=== PATIENT | female | born 2000 | race Two or more races ===

== ENCOUNTER 2019-05-19 19:42 | Emergency (ER) | payer SELFPAY ==
[~2019-05-19] VITALS: Ht 162.6 cm; Wt 52.7 kg
[2019-05-19 19:42] VITALS: BP 123/75
--- NOTE | 2019-05-19 21:03 | ECGEPIP ---
[facility] - ED Test Date: 2019-05-19 Pat Name: BOOGIE CRUZ Department: Room: - Gender: Female Food Service Steward: MIO : 2000 Requested By: LILIANA Barrios Order Number: [id number] Reading MD: Tj Gillespie Measurements Intervals [place] Rate: 91 P: 60 [place]: 125 QRS: 26 QRSD: 74 T: 16 QT: 334 QTc: 411 Interpretive Statements SINUS RHYTHM NO PRIORS FOR COMPARISON Electronically Signed on 05-19-2019 21:03:08 EDT by Tj Gillespie
== END 2019-05-19 21:54 | disposition left against medical advice (07) ==
LOC: M ED 19:42
DX: R07.9 Chest pain, unspecified (principal); Z53.21 Procedure and treatment not carried out due to patient leaving prior to being seen by health care provider

== ENCOUNTER → 2021-05-14 | Outpatient (REF) | payer OTHER | LOC: M WUC 12:28 | PROVIDERS: ATTEND Nurse Practitioner Family | DX: R11.2 Nausea with vomiting, unspecified (principal) ==

== ENCOUNTER 2021-08-17 10:57 | Emergency (ER) | payer OTHER ==
[~2021-08-17] VITALS: Ht 165.1 cm; Wt 58.8 kg
--- OUTSIDE RECORDS SUMMARY | 2021-08-17 11:06 | CCD | Continuity of Care Document ---
Author Author [facility] Unknown Address [address] [place] [address] [place] [address] Phone [phone] Care Team Providers Care Field Installation Technician Name Role Phone No PCP AUTM Unavailable Problems Active Problems Provider Date Allergic rhinitis Onset: Asthma without status asthmaticus Onset: Social History Type Date Description Comments Sex Unknown ETOH Use Occasionally consumes alcohol Tobacco Use Start: Unknown Patient has never smoked Tobacco Use Start: Unknown Marajuana Tobacco Use Start: Unknown Patient Currently Vapes Smoking Status Reviewed: 05/14/21 Patient Currently Vapes Allergies, Adverse Reactions, Alerts Active Allergies Criticality Reaction | Severity Comments Date Penicillins Unable to assess criticality 06/27/2008 Seasonal Unable to assess criticality 07/08/2017 Amoxicillin Unable to assess criticality hives 05/14/2021 Medications Active Medications SIG Qnty Indications Ordering Provide r Date No Active Medications Unknown 10/2020 History Medications Ondansetron 4mg Tablets Dispers 1 tablet every 8 hours as needed for nausea/vomiting 10tabs R11.2 Orlando Rios JR., M.D. 05/14/2021 - 05/28/2021 Medications Administered in Office Medication SIG Qnty Indications Ordering Provider Date Allergy Injection 2 Or More Injection Randolph Navarrete P.A. 10/20/2009 Allergy Injection 2 Or More Injection Braxton Valdez P.ASana 10/15/2009 Allergy Injection 2 Or More Injection Braxton Valdez P.ASana 10/11/2009 Allergy Injection 2 Or More Injection Randolph Navarrete P.A. 10/09/2009 Allergy Injection 2 Or More Injection Braxton Valdez P.ASana 10/03/2009 Allergy Injection 2 Or More Injection KEN Sal 09/29/2009 Allergy Injection 2 Or More Injection Randolph Navarrete, P.A. 09/25/2009 Allergy Injection 2 Or More Injection Randolph Navarrete, P.A. 09/12/2009 Allergy Injection 2 Or More Injection Braxton Valdez, P.A. 08/27/2009 Allergy Injection 2 Or More Injection Braxton Valdez, P.A. 08/20/2009 Allergy Injection 2 Or More Injection Braxton Valdez, P.A. 08/16/2009 Allergy Injection 2 Or More Injection Braxton Valdez, P.A. 08/13/2009 Allergy Injection 2 Or More Injection Randolph Navarrete, P.A. 08/09/2009 Allergy Injection 2 Or More Injection Braxton Valdez, P.A. 08/06/2009 Allergy Injection 2 Or More Injection Braxton Valdez, P.A. 08/02/2009 Allergy Injection 2 Or More Injection Randolph Navarrete, P.A. 07/27/2009 Allergy Injection 2 Or More Injection Braxton Valdez, P.A. 07/23/2009 Allergy Injection 2 Or More Injection Clif López, P.A. 07/18/2009 Allergy Injection 2 Or More Injection Braxton Valdez, P.A. 07/13/2009 Allergy Injection 2 Or More Injection Braxton Valdez, P.A. 04/16/2009 Allergy Injection 2 Or More Injection Braxton Valdez, P.A. 04/06/2009 Allergy Injection 2 Or More Injection Braxton Valdez, P.A. 03/29/2009 Allergy Injection 2 Or More Injection Randolph Navarrete, P.A. 03/21/2009 Allergy Injection 2 Or More Injection Braxton Valdez, P.A. 03/21/2009 Allergy Injection 2 Or More Injection Randolph Navarrete, P.A. 03/13/2009 Allergy Injection 2 Or More Injection Clif López, P.A. 03/07/2009 Allergy Injection 2 Or More Injection Clif López, P.A. 02/28/2009 Allergy Injection 2 Or More Injection Braxton Valdez, P.A. 02/20/2009 Allergy Injection 2 Or More Injection Randolph Navarrete, P.A. 02/13/2009 Allergy Injection 2 Or More Injection Randolph Navarrete, P.A. 01/29/2009 Allergy Injection 2 Or More Injection Braxton Valdez, P.A. 01/29/2009 Allergy Injection 2 Or More Injection Braxton Valdez, P.A. 01/25/2009 Allergy Injection 2 Or More Injection Jaci Gitimothyking, PA 01/21/2009 Allergy Injection 2 Or More Injection Clif López, P.A. 01/17/2009 Allergy Injection 2 Or More Injection Clif López, P.A. 01/13/2009 Allergy Injection 2 Or More Injection Braxton Valdez, P.A. 01/08/2009 Allergy Injection 2 Or More Injection Jason Evangelista, PA 01/04/2009 Allergy Injection 2 Or More Injection Braxton Valdez, P.A. 01/01/2009 Allergy Injection 2 Or More Injection Braxton Valdez, P.A. 12/29/2008 Allergy Injection 2 Or More Injection Braxton Valdez, P.A. 12/26/2008 Allergy Injection 2 Or More Injection Braxton Valdez, P.A. 12/21/2008 Allergy Injection 2 Or More Injection Randolph Navarrete, P.A. 12/19/2008 Allergy Injection 2 Or More Injection Braxton Valdez, P.A. 12/08/2008 Allergy Injection 2 Or More Injection Randolph Navarrete, P.A. 12/05/2008 Allergy Injection 2 Or More Injection Braxton Valdez, P.A. 12/01/2008 Allergy Injection 2 Or More Injection Braxton Valdez, P.A. 11/27/2008 Allergy Injection 2 Or More Injection Braxton Valdez, P.A. 11/21/2008 Allergy Injection 2 Or More Injection Jaci Gieseking, PA 11/18/2008 Allergy Injection 2 Or More Injection Clif López, P.A. 2008 Allergy Injection 2 Or More Injection Jaci Gieseking, PA 11/12/2008 Allergy Injection 2 Or More Injection Braxton Valdez, P.A. 11/06/2008 Allergy Injection 2 Or More Injection Braxton Valdez, P.A. 11/02/2008 Allergy Injection 2 Or More Injection Braxton Valdez, P.A. 10/30/2008 Allergy Injection 2 Or More Injection Braxton Valdez, P.A. 10/18/2008 Allergy Injection 2 Or More Injection Jason Evangelista, PA 10/14/2008 Allergy Injection 2 Or More Injection Braxton Valdez, P.A. 10/10/2008 Allergy Injection Single Injection Braxton Valdez, P.A. 04/11/2008 Allergy Injection Single Injection Randolph Navarrete, P.A. 03/02/2008 Allergy Injection Single Injection Braxton José Miguel, P.A. 01/24/2008 Allergy Injection Single Injection Clif López, P.A. 12/14/2007 Allergy Injection Single Injection Clif López, P.A. 10/25/2007 Allergy Injection Single Injection Braxton José Miguel, P.A. 09/13/2007 Allergy Injection Single Injection Randolph Navarrete, P.A. 08/19/2007 Allergy Injection Single Injection Braxton Valdez, P.A. 07/12/2007 Allergy Injection Single Injection Braxton Valdez, P.A. 06/08/2007 Allergy Injection 2 Or More Injection Braxton Valdez, P.A. 04/29/2007 Immunizations CPT Code Status Date Vaccine Lot # [id number] Given 07/26/2021 PPD- TB Intradermal Test 347 442 Vital Signs Date Vital Result Comment 07/26/2021 12:03pm BP Systolic 115 mmHg BP Diastolic 77 mmHg Heart Rate 75 /min Respiratory Rate 12 /min O2 % BldC Oximetry 99 % Body Temperature 97.1 F Weight 135.00 lb Height 65 inches 5'5" BMI (Body Mass Index) 22.5 kg/m2 Pain Level 0 05/14/2021 9:39am BP Systolic 116 mmHg BP Diastolic 80 mmHg Heart Rate 98 /min Respiratory Rate 15 /min O2 % BldC Oximetry 98 % Body Temperature 98.1 F Weight 130.00 lb Height 65 inches 5'5" BMI (Body Mass Index) 21.6 kg/m2 Pain Level 4 Results Test Acquired Date Facility Test Result H/L Range Note Laboratory test finding 05/14/[address] [id number] [phone] Urine Culture FULL REPORT IN L <SEE NOTE> Normal 1 1 FULL REPORT IN LAB NOTES ([facility] and [facility]). NO GROWTH CLINICAL SIGNIFICANCE 2 OR MORE ORGANISMS Procedures Date Code Description Status 07/26/2021 34249 Preventive Visit Est 18-39 Yrs C ompleted 05/14/2021 33782 Office/Outpatient Established Lo w MDM 20-29 Min Completed Medical Devices Description No Information Available Encounters Type Date Location Provider Dx Diagnosis Office Visit 07/26/2021 9:55a Main Office KEN Reyes Z11 .1 Encounter for screening for respiratory tuberculosis Z02.1 Encounter for pre-employment examination Office Visit 05/14/2021 9:15a Main Office Lori Rodriguez NP R11. 2 Nausea with vomiting, unspecified Assessments Date Code Description Provider 07/26/2021 Z11.1 Encounter for screening for resp iratory tuberculosis KEN Reyes 07/26/2021 Z02.1 Encounter for pre-employment exa mination KEN Reyes 05/14/2021 R11.2 Nausea with vomiting, unspecifie d Lori Rodriguez NP Plan of Treatment No Information Available Functional Status Description No Information Available Mental Status Description No Information Available Referrals Description No Information Available
--- OUTSIDE RECORDS SUMMARY | 2021-08-17 11:06 | CCD | Continuity of Care Document ---
Author Author Candice BARILL[facility] [place] Organization Unknown Address [address] [place] [address] [place] [address] Phone [phone] Care Team Providers Care Physical Metallurgist Name Role Phone No PCP AUTM Unavailable [...] Injection 2 Or More Injection Randolph Navarrete P.ASana 10/20/2009 Allergy Injection 2 Or More Injection Braxton Valdez P.ASana 10/15/2009 Allergy Injection 2 Or More Injection Braxton Valdez P.ASana 10/11/2009 Allergy Injection 2 Or More Injection Randolph Navarrete P.ASana 10/09/2009 Allergy Injection 2 Or More Injection [...] Allergy Injection 2 Or More Injection Randolph Navarerte, P.A. 03/21/2009 Allergy Injection 2 Or More [...] Allergy Injection 2 Or More Injection Jason Barillas, PA 01/04/2009 Allergy Injection 2 Or More [...] Allergy Injection 2 Or More Injection Jason Barillas, PA 10/14/2008 Allergy Injection 2 Or More [...] CPT Code Status Date Vaccine Lot # [id number] Given 07/26/2021 PPD- TB Intradermal Test 347 [...] H/L Range Note Laboratory test finding 05/14/[address] [address] [phone] Urine Culture FULL REPORT IN L <SEE NOTE> Normal 1 1 FULL REPORT IN LAB NOTES ([facility] and [facility]). NO GROWTH CLINICAL SIGNIFICANCE 2 OR MORE ORGANISMS Procedures Date Code Description Status 07/26/2021 70592 Preventive Visit Est 18-39 Yrs C ompleted 05/14/2021 26954 Office/Outpatient Established Lo w MDM 20-29 Min [...]
--- OUTSIDE RECORDS SUMMARY | 2021-08-17 11:06 | CCD | Continuity of Care Document ---
Author Author Candice BARILLAS [place] Organization Unknown Address [address] [place] [address] [place] [address] Phone [phone] Care Team Providers Care Detail Sergeant Name Role Phone No PCP AUTM Unavailable [...] 09/25/2009 Allergy Injection 2 Or More Injection Randloph Navarrete, P.A. 09/12/2009 Allergy Injection 2 Or [...] Allergy Injection 2 Or More Injection Randolph Nvaarrete, P.A. 03/21/2009 Allergy Injection 2 Or More [...] CPT Code Status Date Vaccine Lot # [id number] Given 07/26/2021 PPD- TB Intradermal Test 347 [...] H/L Range Note Laboratory test finding 05/14/[address] [address] [phone] Urine Culture FULL REPORT IN L <SEE NOTE> Normal 1 1 FULL REPORT IN LAB NOTES ([facility] and [facility]). NO GROWTH CLINICAL SIGNIFICANCE 2 OR MORE ORGANISMS Procedures Date Code Description Status 07/26/2021 84420 Preventive Visit Est 18-39 Yrs C ompleted 05/14/2021 00580 Office/Outpatient Established Lo w MDM 20-29 Min [...]
--- OUTSIDE RECORDS SUMMARY | 2021-08-17 11:06 | CCD | Continuity of Care Document ---
Author Author Candice BARILLAS [place] Organization Unknown Address [address] [place] [address] [place] [address] Phone [phone] Care Team Providers Care Fagot Heater Helper Name Role Phone No PCP AUTM Unavailable [...] 03/21/2009 Allergy Injection 2 Or More Injection Bratxon Valdez, P.A. 03/21/2009 Allergy Injection 2 Or [...] CPT Code Status Date Vaccine Lot # [id number] Given 07/26/2021 PPD- TB Intradermal Test 347 [...] Range Note Laboratory test finding 05/14/[address] [address] [phone] Urine Culture FULL REPORT IN L <SEE NOTE> Normal 1 1 FULL REPORT IN LAB NOTES ([facility] and [facility]). NO GROWTH CLINICAL SIGNIFICANCE 2 OR MORE ORGANISMS Procedures Date Code Description Status 07/26/2021 94991 Preventive Visit Est 18-39 Yrs C ompleted 05/14/2021 07546 Office/Outpatient Established Lo w MDM 20-29 Min [...]
--- OUTSIDE RECORDS SUMMARY | 2021-08-17 11:06 | CCD | Continuity of Care Document ---
Author Author Candice BARILLAS [place] Organization Unknown Address [address] [place] [address] [place] [address] Phone [phone] Care Team Providers Care Electrician Chief Name Role Phone No PCP AUTM Unavailable [...] 01/04/2009 Allergy Injection 2 Or More Injection Brxaton Valdez, P.A. 01/01/2009 Allergy Injection 2 Or [...] CPT Code Status Date Vaccine Lot # [id number] Given 07/26/2021 PPD- TB Intradermal Test 347 [...] H/L Range Note Laboratory test finding 05/14/[address] [address] [phone] Urine Culture FULL REPORT IN L <SEE NOTE> Normal 1 1 FULL REPORT IN LAB NOTES ([facility] and [facility]). NO GROWTH CLINICAL SIGNIFICANCE 2 OR MORE ORGANISMS Procedures Date Code Description Status 07/26/2021 43647 Preventive Visit Est 18-39 Yrs C ompleted 05/14/2021 08949 Office/Outpatient Established Lo w MDM 20-29 Min [...]
--- OUTSIDE RECORDS SUMMARY | 2021-08-17 11:07 | CCD ---
Author Author [facility] Organization [facility] Address Unknown Phone Unavailable Care Team Providers Care Diamond Finishing Supervisor Name Role Phone Rodriguez Lori FIELD ADJUSTER Unavailable Unavailable Rodriguez, Lori FIELD ADJUSTER Unavailable Unavailable Rodriguez, Lori FIELD ADJUSTER Unavailable Unavailable Rodriguez, Lori FIELD ADJUSTER Unavailable Unavailable Rodriguez, Lori FIELD ADJUSTER Unavailable Unavailable Rodriguez, Lori FIELD ADJUSTER Unavailable Unavailable Rodriguez, Lori FIELD ADJUSTER Unavailable Unavailable Rodriguez, Lori FIELD ADJUSTER Unavailable Unavailable Rodriguez, Lori FIELD ADJUSTER Unavailable Unavailable Rodriguez, Lori FIELD ADJUSTER Unavailable Unavailable Rodriguez, Lori FIELD ADJUSTER Unavailable Unavailable Rodriguez, Lori FIELD ADJUSTER Unavailable Unavailable Rodriguez, Lori FIELD ADJUSTER Unavailable Unavailable LETTIERE, Beto COLLADO PA Unavailable Unavailable LETTIERE, Beto COLLADO PA Unavailable Unavailable LETTIERE, Beto COLLADO PA Unavailable Unavailable LETTIERE, Beto COLLADO PA Unavailable Unavailable LETTIERE, Beto COLLADO PA Unavailable Unavailable LETTIERE, Beto COLLADO PA Unavailable Unavailable LETTIERE, Beto COLLADO PA Unavailable Unavailable LETTIERE, Beto COLLADO PA Unavailable Unavailable LETTIERE, Beto COLLADO PA Unavailable Unavailable LETTIERE, Beto COLLADO PA Unavailable Unavailable LETTIERE, Beto COLLADO PA Unavailable Unavailable LETTIERE, Beto COLLADO PA Unavailable Unavailable LETTIERE, Beto COLLADO PA Unavailable Unavailable LETTIERE, Beto COLLADO PA Unavailable Unavailable LETTIERE, Beto COLLADO PA Unavailable Unavailable LETTIERE, Beto COLLADO PA Unavailable Unavailable LETTIERE, Beto COLLADO PA Unavailable Unavailable LETTIERE, Beto COLLADO PA Unavailable Unavailable LETTIERE, Beto COLLADO PA Unavailable Unavailable LETTIERE, Beto COLLADO PA Unavailable Unavailable LETTIERE, A JASON PA Unavailable Unavailable LETTIERE, A JASON PA Unavailable Unavailable LETTIERE, A JASON PA Unavailable Unavailable LETTIERE, A JASON PA Unavailable Unavailable LETTIERE, A JASON PA Unavailable Unavailable LETTIERE, A JASON PA Unavailable Unavailable LETTIERE, A JASON PA Unavailable Unavailable LETTIERE, A JASON PA Unavailable Unavailable LETTIERE, A JASON PA Unavailable Unavailable LETTIERE, A JASON PA Unavailable Unavailable LETTIERE, A JASON PA Unavailable Unavailable Re-disclosure Warning The records that you are about to access may contain information from federally-assisted alcohol or drug abuse programs. If such information is present, then the following federally mandated warning applies: This information has been disclosed to you from records protected by federal confidentiality rules (42 CFR part 2). The federal rules prohibit you from making any further disclosure of this information unless further disclosure is expressly permitted by the written consent of the person to whom it pertains or as otherwise permitted by 42 CFR part 2. A general authorization for the release of medical or other information is NOT sufficient for this purpose. The Federal rules restrict any use of the information to criminally investigate or prosecute any alcohol or drug abuse patient.The records that you are about to access may contain highly sensitive health information, the redisclosure of which is protected by Article 27-F of the [facility] Public Health law. If you continue you may have access to information: Regarding HIV / AIDS; Provided by facilities licensed or operated by the [facility] Office of Mental Health; or Provided by the [facility] Office for People With Developmental Disabilities. If such information is present, then the following [facility] mandated warning applies: This information has been disclosed to you from confidential records which are protected by state law. State law prohibits you from making any further disclosure of this information without the specific written consent of the person to whom it pertains, or as otherwise permitted by law. Any unauthorized further disclosure in violation of state law may result in a fine or mcfp sentence or both. A general authorization for the release of medical or other information is NOT sufficient authorization for further disc losure. Family History Family Member Name Family Member Gender Family Member Status Date o f Status Description Data Source(s) Unknown Unknown Problem [facility] ([facility]) Encounters Encounter Providers Location Date Indications Data Source(s ) Outpatient Attender: JASON oliveira 07/26/2021 09:55:00 AM EDT [facility] Outpatient Attender: Lori Simon german 05/14/2021 09:15:00 AM EDT [facility] ([facility]) Immunizations Vaccine Date Status Description Data Source(s) TB Skin test is not vaccine. 07/26/2021 12:00:00 PM EDT completed [facility] ([facility], [facility]) Medications Medication Brand Name Start Date Product Form Dose Route Admi nistrative Instructions Pharmacy Instructions Status Indications Reaction Description Data Source(s) No Active Medications 07/26/2021 12:00:00 AM EDT active [facility] ([facility], [facility]) Ondansetron 4 MG Disintegrating Oral Tablet Ondansetron 05/14/2021 12:00:00 AM EDT completed [facility] ([facility]) Insurance Providers Payer name Policy type / Coverage type Policy ID Covered libertarian ID Covered libertarian's relationship to shaw Policy [employer] Plan Information [facility] [id number] DA2 [id number] SELF PAY ONLY [id number] SP [id number] [place] [employer] - O/P [id number] 01 [id number] [facility] Organization (HMO) [id number] Family Dependent Y1 [id number] [facility] [id number] MO2 [id number] AN[employer]Commercial [id number] ANSI-Commercial [id number] [facility] [id number] MO2 [id number] [facility] [id number] Family Dependent [id number] [employer] [id number] Family Dependent [id number] [employer] [id number] Family Dependent [id number] [employer] PPO O [id number] C [id number] [employer] [id number] MO2 [id number] [employer] [place] PPO [id number] FA2 [id number] [employer] S [id number] C VYS [id number] Problems, Conditions, and Diagnoses No Information Surgeries/Procedures Procedure Description Date Indications Data Source(s) PERIODIC PREVENTIVE MED EST PATIENT 18-39 YRS 07/26/20 12:00:00 AM EDT [facility] ([facility]) OFFICE OUTPATIENT VISIT 15 MINUTES 05/14/2021 12:00:00 AM EDT [facility] ([facility]) Results ID Date Data Source [id number] 05/14/2021 10:05:00 AM EDT [facility] ([facility]) Name Value Range Interpretation Code Description Data Kourtney rce(s) Supporting Document(s) Bacteria identified in Urine by Culture Laboratory test result [facility] ([facility]) FULL REPORT IN LAB NOTES ([facility] and [facility] ). NO GROWTH CLINICAL SIGNIFICANCE 2 OR MORE ORGANISMS Procedure Social History Code Duration Value Status Description Data Source(s ) Smoking 05/14/2021 12:00:00 AM EDT Marajuana completed Marajuana [facility] ([facility]) Vital Signs ID Date Data Source UNK Name Value Range Interpretation Code Description Data Source(s) Heart rate 75 /min 75 /min [facility] ([facility], [facility]) Respiratory rate 12 /min 12 /min [facility] ( [facility]) Oxygen saturation in Arterial blood by Pulse oximetry 99 % 99 % [facility] ([facility]) Body temperature 97.1 [degF] 97.1 [degF] [facility] ([facility]) Diastolic blood pressure 77 mm[Hg] 77 mm[Hg] [facility] ([facility]) Body weight 135.00 [lb_av] 135.00 [lb_av] [facility] T ([facility]) Body height 65 [in_i] 65 [in_i] [facility] 5'5" Body mass index (BMI) [Ratio] 22.5 kg/m2 22.5 k g/m2 [facility] ([facility]) Systolic blood pressure 115 mm[Hg] 115 mm[Hg] M EDENT ([facility]) Body mass index (BMI) [Ratio] 21.6 kg/m2 21.6 k g/m2 [facility] ([facility]) Heart rate 98 /min 98 /min [facility] ([facility]) Body weight 130.00 [lb_av] 130.00 [lb_av] MED[facility] T ([facility]) Body height 65 [in_i] 65 [in_i] [facility] 5'5" Respiratory rate 15 /min 15 /min [facility] ( [facility]) Systolic blood pressure 116 mm[Hg] 116 mm[Hg] [facility] Diastolic blood pressure 80 mm[Hg] 80 mm[Hg] [facility] ([facility]) Oxygen saturation in Arterial blood by Pulse oximetry 98 % 98 % [facility] ([facility]) Body temperature 98.1 [degF] 98.1 [degF] [facility])
[2021-08-17] MEDS ORDERED: IBUP-1114 PO (11:15)
[2021-08-17] MEDS ORDERED: ACET650T15 PO (11:15)
[2021-08-17] MEDS ORDERED: IBUP80TA PO (13:03)
[2021-08-17] MEDS ORDERED: LIDO5DIS41 TD (13:03)
[2021-08-17] MEDS ORDERED: ACET-683 PO (13:03)
[2021-08-17] MEDS ORDERED: CYCL5TAB PO (13:03)
[2021-08-17 13:11] VITALS: BP 121/78
== END 2021-08-17 13:18 | disposition home or self-care (01) ==
LOC: M ED 10:57
DX: M54.6 Pain in thoracic spine (principal); M25.512 Pain in left shoulder; X50.0XXA Overexertion from strenuous movement or load, initial encounter; Y92.9 Unspecified place or not applicable; Y93.9 Activity, unspecified; Y99.0 Civilian activity done for income or pay; G89.29 Other chronic pain; M54.50 Low back pain, unspecified; G40.909 Epilepsy, unspecified, not intractable, without status epilepticus; J45.909 Unspecified asthma, uncomplicated; Z88.0 Allergy status to penicillin; Z88.1 Allergy status to other antibiotic agents; Z79.899 Other long term (current) drug therapy